=== PATIENT | male | born 1945 | race Caucasian/White ===

== ENCOUNTER 2019-09-16 05:39 | Day surgery (SDC) | payer OTHER ==
[2019-09-15 11:08] VITALS: BMI 22.1
[2019-09-16] MEDS ORDERED: Fentanyl 100 MCG/2 ML VIAL ONE (06:32)
[2019-09-16] MEDS ORDERED: Bupivacaine HCl 0.25%/Epi 0.0005/PF 10 ML VIAL FS ONE (06:40)
--- NOTE | 2019-09-16 09:01 | OP ---
DATE OF PROCEDURE: 09/16/2019 PREOPERATIVE DIAGNOSIS: Umbilical hernia. POSTOPERATIVE DIAGNOSIS: Umbilical hernia. PROCEDURE PERFORMED: Umbilical hernia repair with mesh, Ventralex ST small. ANESTHESIA: General. ESTIMATED BLOOD LOSS: Minimal. COMPLICATIONS: None. SPECIMENS: None. FINDINGS: Umbilical hernia. DESCRIPTION OF PROCEDURE: The patient was taken to the operating room and laid supine on the operating room table. After general anesthetic was obtained, the abdomen was shaved, prepped, and draped in a sterile fashion. A curved incision was made below the umbilicus. Cautery was dissected down to and score the fascia. The umbilical stalk was amputated, exposing umbilical defect. The edges of the defect were freshened. The small Ventralex ST mesh was brought in the sterile field, placed into the preperitoneal space, its fibers laid out flat posteriorly. The tails of the mesh were sewn via U-stitch of permanent braided suture to the edges of the fascia. The tails were cut at the level of the fascia. The fascia was closed loosely over the mesh. The wound was irrigated. Local anesthetic was applied. The wound was closed using 3-0 Vicryl, 4-0 Monocryl, and Dermabond. The patient was sent to Recovery in stable condition. All instrument counts, needle counts, and lap counts were correct. Job ID: [id number]
[2019-09-16] MEDS ORDERED: PROPOFOL 200 MG/20 ML VIAL ONE (10:55)
[2019-09-16] MEDS ORDERED: Dexamethasone 20 MG/5 ML VIAL ONE (10:55)
[2019-09-16] MEDS ORDERED: Lidocaine 1% PF 5 ML VIAL ONE (10:55)
[2019-09-16] MEDS ORDERED: Ondansetron PF 4 MG/2 ML Vial ONE (10:55)
[2019-09-16] MEDS ORDERED: Glycopyrrolate 0.2 MG/ML 5 ML SYRINGE ONE (10:55)
[2019-09-16] MEDS ORDERED: Rocuronium Bromide 10 MG/ML (10ML VIAL) ONE (10:55)
[2019-09-16] MEDS ORDERED: Ketorolac Tromethamine 30 MG/ML VIAL ONE (10:55)
--- NOTE | 2019-09-16 17:24 | EKG ---
Test Reason : PREOP Blood Pressure : / mmHG Vent. Rate : 071 BPM Atrial Rate : 071 BPM P-R Int : 210 ms QRS Dur : 100 ms QT Int : 404 ms P-R-T Axes : 036 002 028 degrees QTc Int : 439 ms Sinus rhythm with 1st degree A-V block with frequent , and consecutive Premature ventricular complexe s Abnormal ECG When compared with ECG of 05-SEP-2015 10:36, Premature ventricular complexes are now Present Confirmed by DR. Geovanny HUTSON ([id number]) on 09/16/2019 5:23:56 PM Referred By: AARON Confirmed By:DR. Geovanny HUTSON
== END 2019-09-16 09:15 | disposition home or self-care (01) ==
LOC: SDC 05:39
PROVIDERS: ATTEND Surgery
PROC: 0WUF0JZ Supplement Abdominal Wall with Synthetic Substitute, Open Approach (ICD-10-PCS; principal; 2019-09-16)
DX: K42.9 Umbilical hernia without obstruction or gangrene (principal); I25.10 Atherosclerotic heart disease of native coronary artery without angina pectoris; E03.9 Hypothyroidism, unspecified; E78.2 Mixed hyperlipidemia; I10 Essential (primary) hypertension; E55.9 Vitamin D deficiency, unspecified; Z79.02 Long term (current) use of antithrombotics/antiplatelets; Z79.899 Other long term (current) drug therapy
CPT/HCPCS: 93005; 93010; J0690; J1100; J1885; J2001; J2405; J2704; J3010

== ENCOUNTER 2021-02-08 10:01 | Outpatient (CLI) | payer OTHER ==
[2021-02-08 11:25] LABS: #Eosinphils 0.4 10x3/uL (0.0-0.5); #Monocytes 0.7 10x3/uL (0.0-1.1); #Neutrophils 3.8 10x3/uL (1.5-8.4); %Basophils 0.6 % (0.0-2.0); %Eosinophils 5.2 % (0.0-6.0); %Lymphocytes 30.1 % (18.0-47.0); %Monocytes 9.6 % (0.0-10.0); %Neutrophils 54.2 % (40.0-75.0); Hemoglobin 15.1 g/dL (13.5-17.5); Mean Corpuscular HGB CONC 34.5 g/dL (32.0-36.0); Mean Corpuscular Volume 84.2 fl (81.2-95.1); Mean Platelet Volume 9.1 fl (7.4-10.4); Platelet Count 268 10x3/uL (150-450); RBC Distribution Width 11.8 % (11.5-14.5); White Blood Cell (WBC) Count 7.1 10x3/uL (3.5-10.5)
[2021-02-08 11:50] LABS: Anion Gap 12 mmol/L (10-20); BUN (Urea Nitrogen) 18 mg/dL (8.4-25.7); Calc. Creatinine Clearance 0 mL/min (70-130); Calcium 10.1 mg/dL (7.8-10.44); Carbon Dioxide 32 mmol/L (23-31); Chloride 95 mmol/L (98-107); Glucose 110 mg/dL (83-110); Potassium 4.1 mmol/L (3.5-5.1); Sodium 135 mmol/L (136-145)
[2021-02-08 18:01] LABS: SARS-CoV-2 PCR by NAA Not Detected (NotDetected)
== END 2021-02-08 10:02 | disposition home or self-care (01) ==
LOC: LABBT 10:01
PROVIDERS: ATTEND Orthopaedic Surgery Hand Surgery
DX: Z01.818 Encounter for other preprocedural examination (principal); M72.0 Palmar fascial fibromatosis [Dupuytren]; Z20.822 Contact with and (suspected) exposure to COVID-19
CPT/HCPCS: 80048; 85025; 87635; 93005; 93010; U0003; U0005

== ENCOUNTER 2021-03-09 07:49 | Outpatient (CLI) | payer OTHER ==
[2021-03-09 15:39] LABS: SARS-CoV-2 PCR by NAA Not Detected (NotDetected)
== END 2021-03-09 07:50 | disposition home or self-care (01) ==
LOC: LABBT 07:49
PROVIDERS: ATTEND Orthopaedic Surgery Hand Surgery
DX: Z01.812 Encounter for preprocedural laboratory examination (principal); M72.0 Palmar fascial fibromatosis [Dupuytren]; Z20.822 Contact with and (suspected) exposure to COVID-19
CPT/HCPCS: 87635; U0003; U0005

== ENCOUNTER 2021-03-13 05:29 | Day surgery (SDC) | payer OTHER ==
[2021-02-09 11:36] VITALS: BMI 24.8
[2021-03-13] MEDS ORDERED: Bupivacaine PF 0.5% 30 ML VIAL ONE (06:16)
[2021-03-13] MEDS ORDERED: Fentanyl 100 MCG/2 ML VIAL ONE (07:01)
[2021-03-13] MEDS ORDERED: Midazolam HCl 2 mg/2 ml Vial ONE (07:01)
[2021-03-13] MEDS ORDERED: Propofol 1,000 MG/100 ML VIAL IV ONE (07:01)
[2021-03-13] MEDS ORDERED: Dexamethasone 20 MG/5 ML VIAL ONE (07:17)
[2021-03-13] MEDS ORDERED: Lidocaine 1% PF 5 ML VIAL ONE (07:17)
[2021-03-13] MEDS ORDERED: Ondansetron PF 4 MG/2 ML Vial ONE (07:17)
[2021-03-13] MEDS ORDERED: PROPOFOL 200 MG/20 ML VIAL ONE (07:17)
[2021-03-13] MEDS ORDERED: Collagenase Clostridium Hist. 0.9 MG VIAL IJ SCH (07:30)
[2021-03-13] MEDS ORDERED: Ketorolac Tromethamine 30 MG/ML VIAL ONE (08:13)
== END 2021-03-13 09:00 | disposition home or self-care (01) ==
LOC: SDC 05:29
PROVIDERS: ATTEND Orthopaedic Surgery Hand Surgery
PROC: 3E013TZ Introduction of Destructive Agent into Subcutaneous Tissue, Percutaneous Approach (ICD-10-PCS; principal; 2021-03-13)
DX: M72.0 Palmar fascial fibromatosis [Dupuytren] (principal); I25.10 Atherosclerotic heart disease of native coronary artery without angina pectoris; E78.5 Hyperlipidemia, unspecified; I10 Essential (primary) hypertension; Z79.899 Other long term (current) drug therapy
CPT/HCPCS: J0690; J0775; J1100; J1885; J2250; J2405; J2704; J3010; S0020

== ENCOUNTER 2025-06-30 11:36 | Outpatient (CLI) | payer BC | END 2025-06-30 11:37 | disposition home or self-care (01) | LOC: SCSRAD 11:36 | PROVIDERS: ATTEND Family Medicine | DX: M25.561 Pain in right knee (principal); M17.11 Unilateral primary osteoarthritis, right knee; M11.261 Other chondrocalcinosis, right knee ==